=== PATIENT | male | born 1965 | race Caucasian/White ===

== ENCOUNTER → 2021-05-11 | Emergency (ER) | payer SELFPAY ==
[~2021-05-11] MED LIST: LISINOPRIL20 MG PO
[2021-05-11 16:05] LABS: HEMOGLOBIN 16.5 gm/dl (14.0-17.5); RED BLOOD COUNT 4.99 M/UL (4.20-5.50); WHITE BLOOD COUNT 7.3 K/UL (4.5-11.0)
[2021-05-11 16:25] LABS: BUN/CREATININE RATIO 8 (0-10)
== END | disposition home or self-care (01) ==
LOC: ER1 15:24
PROVIDERS: Nurse Practitioner
DX: I10 Essential (primary) hypertension (principal); F10.20 Alcohol dependence, uncomplicated; Z20.822 Contact with and (suspected) exposure to COVID-19; I25.2 Old myocardial infarction; E78.5 Hyperlipidemia, unspecified; Z79.82 Long term (current) use of aspirin
CPT/HCPCS: 71045; 80053; 81001; 82550; 82553; 83874; 84439; 84443; 84484; 85025; 93005; 99284; G0480; J2270; U0002

== ENCOUNTER 2021-05-29 10:49 | Emergency (ER) | payer SELFPAY ==
[2021-05-29 12:48] LABS: HEMOGLOBIN 16.3 gm/dl (14.0-17.5); RED BLOOD COUNT 4.97 M/UL (4.20-5.50); WHITE BLOOD COUNT 6.9 K/UL (4.5-11.0)
[2021-05-29 13:19] LABS: BUN/CREATININE RATIO 16 (0-10)
== END 2021-05-29 16:00 | disposition home or self-care (01) ==
LOC: ER1 10:49
PROVIDERS: Family Medicine
DX: I10 Essential (primary) hypertension (principal); I25.2 Old myocardial infarction; Z95.1 Presence of aortocoronary bypass graft; Z88.0 Allergy status to penicillin
CPT/HCPCS: 80053; 80061; 80307; 81001; 82550; 82553; 83874; 84484; 85025; 93005; 99283